=== PATIENT | male | born 1965 | race Caucasian/White ===

== ENCOUNTER 2017-11-29 14:37 | Emergency (ER) | payer OTHER ==
[~2017-11-29] VITALS: Ht 185.4 cm; Wt 97.5 kg
[2017-11-29 14:51] VITALS: Ht 185.4 cm; Wt 97.5 kg
[2017-11-29 18:59] VITALS: BP 117/83
== END 2017-11-29 18:59 | disposition home or self-care (01) ==
LOC: ED 14:37
DX: S51.852A Open bite of left forearm, initial encounter (principal); W54.0XXA Bitten by dog, initial encounter; Y93.89 Activity, other specified; Y92.89 Other specified places as the place of occurrence of the external cause; Y99.8 Other external cause status

== ENCOUNTER 2020-01-18 12:14 | Emergency (ER) | payer OTHER ==
[~2020-01-18] VITALS: Ht 177.8 cm; Wt 93.0 kg
[2020-01-18 12:19] VITALS: Ht 177.8 cm; Wt 93.0 kg
[2020-01-18 13:25] VITALS: BP 119/71
== END 2020-01-18 13:25 | disposition home or self-care (01) ==
LOC: ED 12:14
DX: T14.8XXA Other injury of unspecified body region, initial encounter (principal); X58.XXXA Exposure to other specified factors, initial encounter; Y93.89 Activity, other specified; Y92.89 Other specified places as the place of occurrence of the external cause; Y99.8 Other external cause status
CPT/HCPCS: J1885